=== PATIENT | female | born 1980 | race Two or more races ===

== ENCOUNTER 2017-10-22 23:40 | Inpatient (IN) | payer MEDICAID ==
[~2017-10-22] VITALS: Ht 154.9 cm; Wt 89.4 kg
[2017-10-23 00:47] LABS: Basophils # (auto) 0.1 uL; Basophils % (auto) 0.9 % (0.0-2.0); Eosinophils # (auto) 0.3 uL; Hemoglobin 9.9 g/dL (12.2-16.2); Mean Corpuscular Volume 72.6 fL (80.0-100.0); Monocytes # (auto) 0.6 uL
[2017-10-23 00:49] LABS: Eosinophils % (auto) 3.7 % (0.0-7.0); Hematocrit 31.9 % (36.0-46.0); Lymphocytes # (auto) 1.9 uL; Lymphocytes % (auto) 21.1 % (10.0-50.0); Mean Corpuscular Hemoglobin 22.5 pg (28.0-32.0); Neutrophils % (auto) 67.3 % (37.0-80.0); Platelet Count (auto) 286 10^3/uL (140-450); White Blood Cell 8.9 10^3/uL (4.4-10.8)
[2017-10-23 00:55] LABS: Red Cell Distribution Width 36.8 % (11.8-14.3)
[2017-10-23 01:01] LABS: INR 0.95 (0.9-1.15); Partial Thromboplastin Time 30.4 sec (23.78-33.04); Prothrombin Time 10.2 sec (9.27-12.13)
[2017-10-23 01:04] LABS: Albumin 3.8 g/dL (3.4-5.0); BUN/Creatinine Ratio 14.7; Calcium 8.9 mg/dL (8.5-10.1); Potassium 3.7 mmol/L (3.5-5.1)
[2017-10-23 01:07] LABS: Bilirubin, Total 0.3 mg/dL (0.2-1.0)
[2017-10-23 01:22] LABS: Urine Amorphous Crystal FEW /hpf (None Seen); Urine Bacteria FEW /hpf (None Seen); Urine Blood 1+ /uL (Negative); Urine Mucus FEW (None Seen); Urine Specific Gravity 1.011 (1.001-1.035); Urine WBC 2 /hpf (0 - 5)
[2017-10-23] MEDS ORDERED: VANCOMYCIN 1GM/250ML 250 ML IV ONE (03:30)
[2017-10-23] MEDS ORDERED: cefTRIAXone 1GM/10ml IVPUSH 10 ML IV ONE (03:30)
[2017-10-23] MEDS ORDERED: ONDANSETRON HCL 4 MG/2 ML VIAL IV PRN (04:00)
[2017-10-23] MEDS ORDERED: HYDROcodone-ACET 5/325MG TAB PO PRN (04:00)
[2017-10-23] MEDS ORDERED: TEMAZEPAM 15 MG CAP PO PRN (04:00)
[2017-10-23] MEDS ORDERED: ACETAMINOPHEN 325 MG TAB PO PRN (04:00)
[2017-10-23 05:35] VITALS: BP 114/74
[2017-10-23 08:56] VITALS: BP 107/62
[2017-10-23] MEDS: FAMOTIDINE 20 MG TAB PO SCH ×2 (10:00→22:00)
[2017-10-23 10:04] LABS: % Iron Saturation 9.6 % (15-50)
[2017-10-23 12:30] VITALS: BP 112/57
[2017-10-23] MEDS: CLINDAMYCIN 600MG IV 50 ML IV SCH ×3 (14:00→23:00)
[2017-10-23 17:05] VITALS: BP 119/76
[2017-10-23 22:00] VITALS: BP 114/61
[2017-10-23] MEDS ORDERED: cefTRIAXone 1GM/10ml IVPUSH 10 ML IV SCH (22:00)
[2017-10-24] MEDS ORDERED: IBUPROFEN 400 MG TAB PO ONE (01:00)
[2017-10-24 05:09] VITALS: BP 98/49
[2017-10-24 06:19] LABS: Basophils # (auto) 0.1 uL; Eosinophils # (auto) 0.3 uL; Eosinophils % (auto) 3.5 % (0.0-7.0); Lymphocytes # (auto) 1.3 uL; Monocytes # (auto) 0.6 uL; Monocytes % (auto) 7.7 % (0.0-12.0); Neutrophils % (auto) 70.9 % (37.0-80.0); Red Blood Cells 4.17 10^6/uL (4.0-5.20)
[2017-10-24 06:22] LABS: Basophils % (auto) 0.9 % (0.0-2.0); Hematocrit 30.5 % (36.0-46.0); Hemoglobin 9.6 g/dL (12.2-16.2); Mean Corpuscular Hgb Conc. 31.5 g/dL (32.0-36.0); Mean Corpuscular Volume 73.1 fL (80.0-100.0); Neutrophils # (auto) 5.3 uL; Platelet Count (auto) 260 10^3/uL (140-450); White Blood Cell 7.5 10^3/uL (4.4-10.8)
[2017-10-24 06:44] LABS: Potassium 3.8 mmol/L (3.5-5.1)
[2017-10-24 06:48] LABS: Albumin 3.4 g/dL (3.4-5.0); BUN/Creatinine Ratio 15.5; Calcium 8.1 mg/dL (8.5-10.1)
[2017-10-24 06:51] LABS: Bilirubin, Total 0.3 mg/dL (0.2-1.0); Total Protein 7.3 g/dL (6.4-8.2)
[2017-10-24] MEDS: CLINDAMYCIN 600MG IV 50 ML IV SCH ×2 (07:01→14:15)
[2017-10-24 09:00] VITALS: BP 118/62
[2017-10-24] MEDS: FAMOTIDINE 20 MG TAB PO SCH (10:00)
[2017-10-24 13:00] VITALS: BP 123/74
[2017-10-31] MEDS ORDERED: FER325T PO (11:39)
[2017-10-31] MEDS ORDERED: CLIN1CAP4 PO (11:39)
[2017-10-31] MEDS ORDERED: SACC250C PO (11:39)
== END 2017-10-24 16:45 | disposition home or self-care (01) | DRG 383 ==
LOC: ER 23:40 → OVERFLOW 23:41 → WEST WING 10-23 04:44
PROVIDERS: ADMIT Nurse Practitioner; ATTEND Internal Medicine
DX: L03.116 Cellulitis of left lower limb (principal); D25.9 Leiomyoma of uterus, unspecified; E66.9 Obesity, unspecified; D64.9 Anemia, unspecified; N94.6 Dysmenorrhea, unspecified; Z88.1 Allergy status to other antibiotic agents; Z68.37 Body mass index [BMI] 37.0-37.9, adult
CPT/HCPCS: 36415; 80053; 80320; 81001; 81025; 83540; 83550; 85025; 85610; 85730; 87040; 87081; 94761; 96374; 96375; J0696; J3490

== ENCOUNTER 2017-10-27 18:40 | Inpatient (IN) | payer MEDICAID ==
[~2017-10-27] VITALS: Ht 154.9 cm; Wt 89.5 kg
[2017-10-27] MEDS ORDERED: CLINDAMYCIN 900MG IV 50 ML IV ONE (19:45)
[2017-10-27 20:25] LABS: Basophils # (auto) 0.1 uL; Eosinophils # (auto) 0.2 uL; Hemoglobin 10.1 g/dL (12.2-16.2); Lymphocytes # (auto) 1.2 uL; Mean Corpuscular Hemoglobin 23.5 pg (28.0-32.0); Mean Corpuscular Hgb Conc. 31.6 g/dL (32.0-36.0); White Blood Cell 8.7 10^3/uL (4.4-10.8)
[2017-10-27 20:27] LABS: Eosinophils % (auto) 2.9 % (0.0-7.0); Lymphocytes % (auto) 13.6 % (10.0-50.0); Mean Corpuscular Volume 74.3 fL (80.0-100.0); Monocytes # (auto) 0.8 uL; Monocytes % (auto) 8.6 % (0.0-12.0); Neutrophils # (auto) 6.4 uL; Neutrophils % (auto) 73.9 % (37.0-80.0); Platelet Count (auto) 335 10^3/uL (140-450)
[2017-10-27 20:44] LABS: Albumin 3.7 g/dL (3.4-5.0); BUN/Creatinine Ratio 14.4; Bilirubin, Total 0.2 mg/dL (0.2-1.0); CRP High Sensitivity 0.89 mg/dL (< 0.3); Calcium 8.6 mg/dL (8.5-10.1); Total Protein 7.7 g/dL (6.4-8.2)
[2017-10-27] MEDS ORDERED: IBUPROFEN 800 MG TAB PO ONE (22:15)
[2017-10-27] MEDS ORDERED: TEMAZEPAM 15 MG CAP PO PRN (22:30)
[2017-10-27] MEDS ORDERED: ONDANSETRON HCL 4 MG/2 ML VIAL IV PRN (22:30)
[2017-10-27 23:15] VITALS: BP 127/75
[2017-10-27 23:36] VITALS: BP 127/78
[2017-10-28] VITALS (7 sets, daily range): BP systolic 101–113; BP diastolic 36–68
[2017-10-28] MEDS ORDERED: cefTRIAXone 1GM/10ml IVPUSH 10 ML IV ONE (01:00)
[2017-10-28 05:42] LABS: Basophils # (auto) 0.1 uL; Eosinophils # (auto) 0.3 uL; Hemoglobin 9.5 g/dL (12.2-16.2); Lymphocytes # (auto) 1.4 uL; Monocytes # (auto) 0.7 uL; Monocytes % (auto) 9.3 % (0.0-12.0); White Blood Cell 7.5 10^3/uL (4.4-10.8)
[2017-10-28 05:44] LABS: Basophils % (auto) 0.9 % (0.0-2.0); Eosinophils % (auto) 3.6 % (0.0-7.0); Hematocrit 30.1 % (36.0-46.0); Lymphocytes % (auto) 19.1 % (10.0-50.0); Mean Corpuscular Hemoglobin 23.5 pg (28.0-32.0); Mean Corpuscular Hgb Conc. 31.6 g/dL (32.0-36.0); Mean Corpuscular Volume 74.3 fL (80.0-100.0); Neutrophils % (auto) 67.1 % (37.0-80.0); Platelet Count (auto) 307 10^3/uL (140-450); Red Blood Cells 4.05 10^6/uL (4.0-5.20)
[2017-10-28 05:53] LABS: Albumin 3.2 g/dL (3.4-5.0); BUN/Creatinine Ratio 14.8; Calcium 8.1 mg/dL (8.5-10.1)
[2017-10-28 05:55] LABS: Bilirubin, Total 0.2 mg/dL (0.2-1.0); Total Protein 6.9 g/dL (6.4-8.2)
[2017-10-28] MEDS: CLINDAMYCIN 600MG IV 50 ML IV SCH ×3 (06:18→22:00)
[2017-10-28 06:19] LABS: Red Cell Distribution Width 34.7 % (11.8-14.3)
[2017-10-28] MEDS: FERROUS SULFATE 325 MG TAB PO SCH ×2 (09:43→18:26)
[2017-10-28] MEDS: FAMOTIDINE 20 MG TAB PO SCH ×2 (09:43→22:00)
[2017-10-28] MEDS: IBUPROFEN 600 MG TAB PO PRN ×2 (09:44→16:32)
[2017-10-28] MEDS: cefTRIAXone 1GM/10ml IVPUSH 10 ML IV SCH (20:52)
[2017-10-29 05:12] VITALS: BP 114/59
[2017-10-29] MEDS: CLINDAMYCIN 600MG IV 50 ML IV SCH ×3 (05:34→21:49)
[2017-10-29 08:00] VITALS: BP 112/60
[2017-10-29 09:00] VITALS: BP 112/60
[2017-10-29] MEDS: FERROUS SULFATE 325 MG TAB PO SCH ×2 (09:55→17:47)
[2017-10-29] MEDS: FAMOTIDINE 20 MG TAB PO SCH ×2 (09:55→21:48)
[2017-10-29] MEDS: IBUPROFEN 600 MG TAB PO PRN ×2 (09:55→17:47)
[2017-10-29] MEDS: SILVER SULFADIAZINE 1 % TOPICAL CREAM 50GM TOP SCH (14:59)
[2017-10-29 20:25] VITALS: BP 125/54
[2017-10-29] MEDS: cefTRIAXone 1GM/10ml IVPUSH 10 ML IV SCH (20:47)
[2017-10-29 21:39] VITALS: BP 125/54
[2017-10-30 05:05] VITALS: BP 119/71
[2017-10-30] MEDS: CLINDAMYCIN 600MG IV 50 ML IV SCH ×3 (05:45→21:59)
[2017-10-30 08:53] VITALS: BP 105/52
[2017-10-30] MEDS: FAMOTIDINE 20 MG TAB PO SCH ×2 (10:18→21:42)
[2017-10-30] MEDS: SILVER SULFADIAZINE 1 % TOPICAL CREAM 50GM TOP SCH (10:18)
[2017-10-30] MEDS: IBUPROFEN 600 MG TAB PO PRN ×2 (10:20→21:59)
[2017-10-30] MEDS: FERROUS SULFATE 325 MG TAB PO SCH ×2 (10:21→17:46)
[2017-10-30 13:00] VITALS: BP 119/67
[2017-10-30 16:54] VITALS: BP 99/41
[2017-10-30] MEDS: cefTRIAXone 1GM/10ml IVPUSH 10 ML IV SCH (21:42)
[2017-10-30 22:00] VITALS: BP_SYST 106; BP_SYST 86; BP_DIAS 54; BP_DIAS 63
[2017-10-31 04:39] VITALS: BP 114/58
[2017-10-31] MEDS: CLINDAMYCIN 600MG IV 50 ML IV SCH ×2 (05:46→14:00)
[2017-10-31] MEDS: FERROUS SULFATE 325 MG TAB PO SCH (08:32)
[2017-10-31 09:00] VITALS: BP 112/64
[2017-10-31] MEDS: FAMOTIDINE 20 MG TAB PO SCH (09:15)
[2017-10-31] MEDS: SILVER SULFADIAZINE 1 % TOPICAL CREAM 50GM TOP SCH (09:15)
[2017-10-31 09:17] LABS: Basophils # (auto) 0.1 uL; Basophils % (auto) 1.3 % (0.0-2.0); Eosinophils # (auto) 0.3 uL; Hemoglobin 9.9 g/dL (12.2-16.2); Lymphocytes # (auto) 1.2 uL; Monocytes # (auto) 0.5 uL; White Blood Cell 7.1 10^3/uL (4.4-10.8)
[2017-10-31 09:20] LABS: BUN/Creatinine Ratio 17.3; Calcium 8.2 mg/dL (8.5-10.1); Eosinophils % (auto) 3.6 % (0.0-7.0); Hematocrit 31.5 % (36.0-46.0); Lymphocytes % (auto) 17.3 % (10.0-50.0); Mean Corpuscular Hemoglobin 23.8 pg (28.0-32.0); Mean Corpuscular Hgb Conc. 31.5 g/dL (32.0-36.0); Mean Corpuscular Volume 75.5 fL (80.0-100.0); Monocytes % (auto) 7.6 % (0.0-12.0); Neutrophils % (auto) 70.2 % (37.0-80.0); Platelet Count (auto) 340 10^3/uL (140-450); Potassium 4.1 mmol/L (3.5-5.1); Red Blood Cells 4.18 10^6/uL (4.0-5.20)
[2017-10-31 09:24] LABS: Red Cell Distribution Width 34.1 % (11.8-14.3)
[2017-10-31] MEDS ORDERED: CLIN1CAP4 PO (11:39)
[2017-10-31] MEDS ORDERED: SACC250C PO (11:39)
[2017-10-31] MEDS ORDERED: FER325T PO (11:39)
[2017-10-31 12:53] VITALS: BP 112/64
[2017-10-31 13:00] VITALS: BP 118/70
== END 2017-10-31 14:10 | disposition home or self-care (01) | DRG 383 ==
LOC: ER 18:40 → OVERFLOW 18:41 → WEST WING 23:15
PROVIDERS: ADMIT Nurse Practitioner; ATTEND Internal Medicine
PROC: 0Y9D3ZZ Drainage of Left Upper Leg, Percutaneous Approach (ICD-10-PCS; principal; 2017-10-27)
DX: L03.116 Cellulitis of left lower limb (principal); D25.9 Leiomyoma of uterus, unspecified; N94.6 Dysmenorrhea, unspecified; L02.416 Cutaneous abscess of left lower limb; D50.9 Iron deficiency anemia, unspecified; S80.222A Blister (nonthermal), left knee, initial encounter; L53.9 Erythematous condition, unspecified; E66.9 Obesity, unspecified; X58.XXXA Exposure to other specified factors, initial encounter; Y93.89 Activity, other specified; Z83.3 Family history of diabetes mellitus; Z88.1 Allergy status to other antibiotic agents; Y92.89 Other specified places as the place of occurrence of the external cause; Y99.8 Other external cause status; Z68.37 Body mass index [BMI] 37.0-37.9, adult
CPT/HCPCS: 36415; 80048; 80053; 85025; 86141; 87040; 87081; 87205; 96374; J0696; J3490